=== PATIENT | male | born 1960 | race African-American/Black ===

== ENCOUNTER 2023-10-07 18:15 | Inpatient (IN) | payer OTHER ==
[~2023-10-07] VITALS: Ht 188 cm; Wt 83.1 kg
[2023-10-07] MEDS ORDERED: 0.9% SODIUM CHLORIDE 10 ML SYRINGE IVP PRN (18:30)
[2023-10-07] MEDS: SODIUM CHLORIDE 0.9% 2,750 ML IV ONE (18:36)
[2023-10-07 18:52] LABS: BASOPHILS % (AUTO) 0.1 % (0.0-2.0); EOSINOPHILS % (AUTO) 0 % (1.0-6.0); HEMATOCRIT 31.6 % (41-53); HEMOGLOBIN 10.5 g/dL (13.5-17.5); LYMPHOCYTES # (AUTO) 0.3 K/uL (1.0-4.8); LYMPHOCYTES % (AUTO) 2.7 % (22.0-44.0); MEAN CORPUSCULAR HEMOGLOBIN 27.5 pg (26.0-34.0); MEAN CORPUSCULAR HGB CONC 33.2 G/dL (31.0-37.0); MEAN CORPUSCULAR VOLUME 83 fL (80-100); MONOCYTES # (AUTO) 0.5 K/uL (0.1-1.0); MONOCYTES % (AUTO) 4.5 % (2.0-9.0); NEUTROPHILS # (AUTO) 9.6 K/uL (1.8-7.7); PLATELET COUNT (AUTO) 423 K/uL (150-450); RED BLOOD CELL COUNT(AUTO) 3.81 MIL/uL (4.50-5.90); RED CELL DISTRIBUTION WIDTH 17.3 % (11.5-14.5); WHITE BLOOD COUNT (AUTO) 10.4 K/uL (4.5-11.0)
[2023-10-07 18:54] LABS: NEUTROPHILS % (AUTO) 92.7 % (40.0-70.0)
[2023-10-07 19:04] LABS: INR 1.1 (0.9-1.1); PROTHROMBIN TIME 11.8 SEC (9.4-11.6)
[2023-10-07 19:07] LABS: ANION GAP 9 mmol/L (8-16); CALCIUM, TOTAL 8.9 mg/dL (8.8-10.5); CARBON DIOXIDE 28 mmol/L (22-29); CHLORIDE 100 mmol/L (98-107); CREATININE 0.89 mg/dL (0.60-1.30); GLOMERULAR FILTR. RATE CALC > 60 mL/min (>60); GLUCOSE,RANDOM 94 mg/dL (70-110); POTASSIUM 3.4 mmol/L (3.5-5.1); SODIUM SERUM 137 mmol/L (136-145); UREA NITROGEN, BLOOD 11 mg/dL (7-18)
[2023-10-07 19:13] LABS: LACTIC ACID 0.8 mmol/L (0.4-2.0)
[2023-10-07 19:20] LABS: ALANINE AMINOTRANSFERASE 46 U/L (12-78); ALBUMIN 2.4 g/dL (3.4-5.0); ALKALINE PHOSPHATASE 104 U/L (46-116); ASPARTATE AMINOTRANSFERASE 25 U/L (15-37); BILIRUBIN,TOTAL 0.6 mg/dL (0.1-1.0); TOTAL PROTEIN, SERUM 7.8 g/dL (6.4-8.2); TROPONIN I-HIGH SENSITIVITY 200 ng/L (<76)
[2023-10-07 19:23] LABS: B-TYPE NATRIURETIC PEPTIDE 160 pg/mL (0-100)
[2023-10-07 19:46] LABS: INFLUENZA A-RTPCR,COMBO NEGATIVE (NEGATIVE); INFLUENZA B-RTPCR,COMBO NEGATIVE (NEGATIVE); RESPIRATORY SYNCYTIAL VRS-PCR NEGATIVE (NEGATIVE); SARS COVID19 RTPCR, COMBO NEGATIVE (NEGATIVE)
[2023-10-07] MEDS: AZITHROMYCIN 500 MG/NS 250 ML IV ONE (21:18)
[2023-10-07] MEDS: CefTRIAXone 1 GM/DEXTROSE 50 ML IV ONE (21:18)
[2023-10-07] MEDS ORDERED: ONDANSETRON HCL 4 MG/2 ML VIAL IVP PRN (21:30)
[2023-10-07 22:49] LABS: TROPONIN I-HIGH SENSITIVITY 191 ng/L (<76)
[2023-10-07 23:15] VITALS: BP 177/71; PULSE 85; RESP 18; TEMP 97.7
[2023-10-07] MEDS: HEPARIN SODIUM,PORCINE 5,000 UNITS/ML VIAL SQ SCH (23:41)
[2023-10-07] MEDS: ACETAMINOPHEN 325 MG TABLET PO PRN (23:42)
[2023-10-08 00:40] VITALS: BP 102/65; PULSE 74
[2023-10-08 03:23] LABS: APPEARANCE,URINE HAZY (CLEAR); BILIRUBIN,URINE NEGATIVE (NEGATIVE); COLOR,URINE LIGHT YELLOW (YELLOW); GLUCOSE, URINE (UA) NEGATIVE (NEGATIVE); KETONES,URINE NEGATIVE (NEGATIVE); LEUKOCYTE ESTERASE ,URINE LARGE (NEGATIVE); NITRATE,URINE POSITIVE (NEGATIVE); OCCULT BLOOD,URINE MODERATE (NEGATIVE); PROTEIN,URINE TRACE mg/dL (NEGATIVE); SPECIFIC GRAVITIY, URINE 1.016 (1.003-1.030); UROBILINOGEN,URINE <=1.0 mg/dL (<=1.0)
[2023-10-08 03:45] LABS: BACTERIA,URINE Few /HPF (None Seen); SQUAMOUS EPITHELIAL CELL,UR Few /LPF (None Seen); WBC,URINE 26-50 /HPF (0-5)
[2023-10-08] MEDS ORDERED: POTASSIUM CHL 10 MEQ/WATER 50 ML IV PRN (03:45)
[2023-10-08 04:05] VITALS: BP 121/76; PULSE 88; RESP 20; TEMP 97.8
[2023-10-08] MEDS ORDERED: SODIUM CHLORIDE 0.9% 0 ML ONE (04:11)
[2023-10-08] MEDS ORDERED: IOHEXOL 350 MG/ML 100 ML VIAL ONE (04:12)
[2023-10-08] MEDS: POTASSIUM CHLORIDE 20 MEQ ER TABLET PO PRN (05:37)
[2023-10-08 07:06] LABS: BASOPHILS % (AUTO) 0.1 % (0.0-2.0); EOSINOPHILS % (AUTO) 0.4 % (1.0-6.0); HEMATOCRIT 32.1 % (41-53); HEMOGLOBIN 10.6 g/dL (13.5-17.5); LYMPHOCYTES # (AUTO) 0.5 K/uL (1.0-4.8); LYMPHOCYTES % (AUTO) 6.2 % (22.0-44.0); MEAN CORPUSCULAR HEMOGLOBIN 27.4 pg (26.0-34.0); MEAN CORPUSCULAR VOLUME 83 fL (80-100); MONOCYTES # (AUTO) 0.4 K/uL (0.1-1.0); MONOCYTES % (AUTO) 5.8 % (2.0-9.0); NEUTROPHILS # (AUTO) 6.8 K/uL (1.8-7.7); PLATELET COUNT (AUTO) 407 K/uL (150-450); RED BLOOD CELL COUNT(AUTO) 3.87 MIL/uL (4.50-5.90); RED CELL DISTRIBUTION WIDTH 17.2 % (11.5-14.5); WHITE BLOOD COUNT (AUTO) 7.7 K/uL (4.5-11.0)
[2023-10-08 07:15] LABS: ANION GAP 8 mmol/L (8-16); CALCIUM, TOTAL 9.2 mg/dL (8.8-10.5); CARBON DIOXIDE 29 mmol/L (22-29); CHLORIDE 104 mmol/L (98-107); CREATININE 0.89 mg/dL (0.60-1.30); GLOMERULAR FILTR. RATE CALC > 60 mL/min (>60); GLUCOSE,RANDOM 81 mg/dL (70-110); POTASSIUM 3.8 mmol/L (3.5-5.1); SODIUM SERUM 141 mmol/L (136-145); UREA NITROGEN, BLOOD 13 mg/dL (7-18)
[2023-10-08 07:19] LABS: NEUTROPHILS % (AUTO) 87.5 % (40.0-70.0)
[2023-10-08 07:35] LABS: TROPONIN I-HIGH SENSITIVITY 153 ng/L (<76)
[2023-10-08] MEDS: DOCUSATE SODIUM 100 MG CAPSULE PO SCH (09:29)
[2023-10-08 11:38] VITALS: BP 137/83; PULSE 91; RESP 20; TEMP 98.1
[2023-10-08 16:00] VITALS: BP 130/76; PULSE 87; RESP 20; TEMP 98
[2023-10-08 20:13] VITALS: BP 129/78; PULSE 105; RESP 20; TEMP 98.1
[2023-10-08] MEDS ORDERED: SODIUM CHLORIDE 0.9% 500 ML IV ONE (21:30)
[2023-10-08] MEDS: CefTRIAXone 1 GM/DEXTROSE 50 ML IV SCH (21:32)
[2023-10-08] MEDS: AZITHROMYCIN 500 MG/NS 250 ML IV SCH (22:15)
[2023-10-09 00:19] VITALS: BP 153/86; PULSE 87; RESP 20; TEMP 98.3
[2023-10-09] MEDS ORDERED: IOHEXOL 350 MG/ML 100 ML VIAL ONE (03:09)
[2023-10-09] MEDS ORDERED: SODIUM CHLORIDE 0.9% 100 ML ONE (03:09)
[2023-10-09 05:15] VITALS: BP 134/80; PULSE 73; RESP 20; TEMP 98.1
[2023-10-09 08:48] VITALS: BP 146/87; PULSE 67; RESP 18; TEMP 97.9
[2023-10-09] MEDS: TiZANidine HCL 4 MG TABLET PO PRN (18:27)
[2023-10-09 20:09] VITALS: BP 129/72; PULSE 84; RESP 19; TEMP 98
[2023-10-10] VITALS (7 sets, daily range): BP systolic 133–150; BP diastolic 66–86; PULSE 68–94; RESP 17–18; TEMP 97.5–98
[2023-10-10] MEDS: TAMSULOSIN HCL 0.4 MG CAPSULE PO SCH (16:18)
[2023-10-10] MEDS: PHENAZOPYRIDINE HCL 100 MG TABLET PO SCH (17:18)
[2023-10-10] MEDS ORDERED: PHENAZOPYRIDINE HCL 100 MG TABLET PO SCH (21:00)
[2023-10-11 04:44] VITALS: BP 170/84; PULSE 73; RESP 20; TEMP 98.3
[2023-10-11 05:26] VITALS: BP 138/71
[2023-10-11 07:51] LABS: BASOPHILS % (AUTO) 0.4 % (0.0-2.0); EOSINOPHILS % (AUTO) 1.7 % (1.0-6.0); HEMATOCRIT 31.1 % (41-53); HEMOGLOBIN 10.4 g/dL (13.5-17.5); LYMPHOCYTES # (AUTO) 1.4 K/uL (1.0-4.8); LYMPHOCYTES % (AUTO) 25.9 % (22.0-44.0); MEAN CORPUSCULAR HEMOGLOBIN 27.6 pg (26.0-34.0); MEAN CORPUSCULAR HGB CONC 33.5 G/dL (31.0-37.0); MEAN CORPUSCULAR VOLUME 82 fL (80-100); MONOCYTES # (AUTO) 0.5 K/uL (0.1-1.0); NEUTROPHILS # (AUTO) 3.4 K/uL (1.8-7.7); PLATELET COUNT (AUTO) 468 K/uL (150-450); RED BLOOD CELL COUNT(AUTO) 3.77 MIL/uL (4.50-5.90); RED CELL DISTRIBUTION WIDTH 17.1 % (11.5-14.5); WHITE BLOOD COUNT (AUTO) 5.4 K/uL (4.5-11.0)
[2023-10-11 08:00] VITALS: BP 148/81; PULSE 82; RESP 20; TEMP 98.3
[2023-10-11 08:08] LABS: ANION GAP 9 mmol/L (8-16); CALCIUM, TOTAL 8.7 mg/dL (8.8-10.5); CARBON DIOXIDE 28 mmol/L (22-29); CHLORIDE 104 mmol/L (98-107); CREATININE 0.88 mg/dL (0.60-1.30); GLOMERULAR FILTR. RATE CALC > 60 mL/min (>60); GLUCOSE,RANDOM 127 mg/dL (70-110); POTASSIUM 3.5 mmol/L (3.5-5.1); SODIUM SERUM 140 mmol/L (136-145); UREA NITROGEN, BLOOD 14 mg/dL (7-18)
[2023-10-11 15:51] VITALS: BP 147/79; PULSE 80; RESP 20; TEMP 98.4
[2023-10-11 21:00] VITALS: BP 148/81; PULSE 90; RESP 20; TEMP 98.1
[2023-10-12 08:34] VITALS: BP 142/78; PULSE 74; RESP 19; TEMP 98.2
[2023-10-12] MEDS: LEVOFLOXACIN 500 MG TABLET PO SCH (09:22)
[2023-10-12] MEDS: HYDROCORTISONE 1% 30 GM OINTMENT TP PRN (12:55)
[2023-10-12] MEDS: POTASSIUM CHLORIDE 10 MEQ ER TABLET PO ONE (12:56)
[2023-10-12] MEDS: AMOX TR/POT CLAV 875 MG/125 MG TABLET PO SCH (12:56)
[2023-10-12 16:42] VITALS: BP 142/81; PULSE 91; RESP 19; TEMP 98.2
[2023-10-12 21:22] VITALS: BP 156/89; PULSE 115; RESP 20; TEMP 101.1
[2023-10-13] MEDS ORDERED: SODIUM CHLORIDE 0.9% 500 ML IV ONE (00:09)
[2023-10-13] MEDS: SULFAMETHOX/TRIMETH DS 800-160 MG/TABLET PO SCH (00:29)
[2023-10-13] MEDS: MEROPENEM 2 GM in SODIUM CHLORIDE 0.9% 100 ML IV ONE (00:29)
[2023-10-13 05:30] VITALS: BP 129/64; PULSE 109; RESP 18; TEMP 98.1
[2023-10-13 08:36] VITALS: BP 135/69; PULSE 99; RESP 18; TEMP 99.7
[2023-10-13] MEDS: CHLORHEXIDINE GLUCONATE 2% TOWELETTE [2'S/6'S] TP ONE (09:51)
[2023-10-13] MEDS: ETHYL ALCOHOL 62% ANTISEPTIC NASAL SANITIZER 0.6 ML AMPUL NASAL SCH (09:51)
[2023-10-13] MEDS: MEROPENEM 1 GM in SODIUM CHLORIDE 0.9% 100 ML IV SCH (15:44)
[2023-10-13 15:47] VITALS: BP 119/69; PULSE 93; RESP 20; TEMP 98.9
[2023-10-13] MEDS: PHENAZOPYRIDINE HCL 200 MG TABLET PO SCH (15:50)
[2023-10-13 20:22] VITALS: BP 116/61; PULSE 93; RESP 18; TEMP 98.2
[2023-10-14 04:21] VITALS: BP 131/70; PULSE 81; RESP 18; TEMP 98
[2023-10-14 08:13] VITALS: BP 123/71; PULSE 89; RESP 20; TEMP 97.2
[2023-10-14 17:04] VITALS: BP 131/73; PULSE 87; RESP 18; TEMP 97.2
[2023-10-14 19:20] VITALS: BP 124/66; PULSE 93; RESP 18; TEMP 98.2
[2023-10-15 05:37] VITALS: BP 153/77; PULSE 80; RESP 18; TEMP 98.4
[2023-10-15 07:58] VITALS: BP 130/80; PULSE 76; RESP 20; TEMP 97.6
[2023-10-15] MEDS ORDERED: CIPR500T10 PO (09:31)
[2023-10-15] MEDS ORDERED: AMOX1TAB16 PO (09:31)
[2023-10-15] MEDS ORDERED: TAMS0.4C94 PO (09:33)
[2023-10-15 15:44] VITALS: BP 129/73; PULSE 92; RESP 20; TEMP 97.8
== END 2023-10-15 18:45 | DRG 720 ==
LOC: EMS 18:15 → 5S 22:03 → 6N 10-10 23:24
PROVIDERS: ADMIT Internal Medicine; ATTEND Internal Medicine
DX: A41.9 Sepsis, unspecified organism (principal); G93.41 Metabolic encephalopathy; E44.0 Moderate protein-calorie malnutrition; J18.9 Pneumonia, unspecified organism; I24.89 Other forms of acute ischemic heart disease; R53.2 Functional quadriplegia; Z20.822 Contact with and (suspected) exposure to COVID-19; I10 Essential (primary) hypertension; N39.0 Urinary tract infection, site not specified; N31.9 Neuromuscular dysfunction of bladder, unspecified; N40.0 Benign prostatic hyperplasia without lower urinary tract symptoms; F32.A Depression, unspecified; G89.29 Other chronic pain; Y95 Nosocomial condition; B96.1 Klebsiella pneumoniae [K. pneumoniae] as the cause of diseases classified elsewhere; Z16.24 Resistance to multiple antibiotics; Z79.899 Other long term (current) drug therapy; Z63.4 Disappearance and death of family member; Z68.23 Body mass index [BMI] 23.0-23.9, adult
CPT/HCPCS: 0241U; 70450; 71045; 72126; 76770; 80048; 80053; 81001; 83605; 83735; 83880; 84132; 84145; 84484; 85025; 85610; 85730; 87040; 87081; 87086; 87186; 87449; 93005; 99285; J0456; J0696; J1644; J2185; J7040; J7050; Q9967; 36415-L1; 36415-TC